=== PATIENT | male | born 1955 | race Caucasian/White ===

== ENCOUNTER 2018-09-23 15:21 | Emergency (ER) | payer SELFPAY ==
[2018-09-23 16:24] LABS: Amphetamine Not Detected (NotDetected); Barbiturates Screen Not Detected (NotDetected); Benzodiazepine Screen Not Detected (NotDetected); Cocaine Metabolite Screen Not Detected (NotDetected); Medtox Control Line Valid? VALID (VALID); Methadone Not Detected (NotDetected); Methamphetamine Not Detected (NotDetected); Opiate Screen Not Detected (NotDetected); Oxycodone Screen Not Detected (NotDetected); Phencyclidine (PCP) Not Detected (NotDetected); THC/Cannabinoid Screen Not Detected (NotDetected); Tricyclic Screen Not Detected (NotDetected)
[2018-09-23 16:24] LABS: ALT (SGPT) 43 U/L (8-55); AST (SGOT) 43 U/L (5-34); Alkaline Phosphatase 83 U/L (40-150); Anion Gap 15 mmol/L (10-20); BUN (Urea Nitrogen) 14 mg/dL (8.4-25.7); Bilirubin, Total 2.9 mg/dL (0.2-1.2); Calc. Creatinine Clearance 0 mL/min (70-130); Calcium 8.7 mg/dL (7.8-10.44); Carbon Dioxide 22 mmol/L (23-31); Chloride 105 mmol/L (98-107); Estimated GFR-MDRD Greater than 90; Globulin 3.3 g/dL (2.4-3.5); Glucose 181 mg/dL (80-115); Lipase 48 U/L (8-78); Potassium 3.3 mmol/L (3.5-5.1); Protein, Total 6.3 g/dL (5.8-8.1); Sodium 139 mmol/L (136-145)
[2018-09-23 16:25] LABS: Bilirubin Negative (Negative); Blood, Urine Negative (Negative); Clarity Clear (Clear); Glucose, Urine (Dipstick) Negative (Negative); Leukocyte Trace (Negative); Nitrite Negative (Negative); Protein, Urine (Dipstick) Negative (Neg-Trace); Specific Gravity, Urine 1.015 (1.005-1.030)
--- NOTE | 2018-09-23 16:26 | CT ---
CT head noncontrast HISTORY: Altered mental status. FINDINGS: There is no evidence of acute intracranial hemorrhage or infarct. Diffuse cortical atrophy and mild chronic ischemic small vessel disease. Large arachnoid cyst in the posterior fossa. There is no mass effect or shift of midline structures. Visualized paranasal sinuses remain well-aerated. IMPRESSION: No acute intracranial abnormalities are demonstrated.
[2018-09-23 16:30] LABS: Bacteria/HPF Rare-Few HPF (None Seen); RBC/HPF 0-3 HPF (0-3); Squamous Epithelial 0-3 HPF (0-3)
[2018-09-23 16:33] LABS: #Eosinphils 0.1 thou/uL (0.0-0.7); #Lymphocytes 0.6 thou/uL (1.20-3.40); #Monocytes 0.3 thou/uL (0.11-0.59); #Neutrophils 2.1 thou/uL (1.40-6.50); %Basophils 0.9 % (0.0-1.0); %Eosinophils 3.9 % (0.0-10.0); %Lymphocytes 19.1 % (21.0-51.0); %Monocytes 9.1 % (0.0-10.0); %Neutrophils 67.1 % (42.0-75.0); Mean Corpuscular HGB CONC 35.3 g/dL (32.0-36.0); Mean Corpuscular Hemoglobin 32.1 pg (27.0-31.0); Mean Corpuscular Volume 90.8 fL (78.0-98.0); Mean Platelet Volume 8.9 fL (7.4-10.4); Nucleated RBC 0 % (0); Platelet Count 42 thou/uL (130-400); Platelet Morphology Comment Appears Decreased; RBC Distribution Width 13.5 % (11.5-14.5); Red Blood Cell (RBC) Count 3.73 mill/uL (4.70-6.10); White Blood Cell (WBC) Count 3.1 thou/uL (4.8-10.8)
--- NOTE | 2018-09-23 16:34 | RAD ---
Skull 4 views HISTORY: Head injury. FINDINGS: No depressed skull fractures are apparent. Orbital rims are intact. Visualized paranasal si nuses remain well-aerated. IMPRESSION: No acute osseous abnormalities are demonstrated.
[2018-09-23 16:41] LABS: Acetaminophen Less than 6.0 mcg/mL (10.0-30.0); Alcohol Less than 10 mg/dL (Less than 10); Salicylate Less than 8.0 mg/dL (15.0-30.0)
== END 2018-09-23 17:36 | disposition short-term general hospital (02) ==
LOC: MADERS 15:21
DX: K72.90 Hepatic failure, unspecified without coma (principal); N39.0 Urinary tract infection, site not specified
CPT/HCPCS: 36415; 70450; 71045; 80053; 80306; 80307; 81003; 81015; 82140; 83690; 84484; 85025; 87086; 93005; 94760